=== PATIENT | male | born 1960 | race Caucasian/White ===

== ENCOUNTER 2016-04-19 18:29 | Emergency (ER) | payer MEDICARE, OTHER ==
[2016-04-19] MEDS ORDERED: Adacel (T-DAP) 0.5 ML VIAL ONE (18:37)
[2016-04-19] MEDS ORDERED: Bacitracin Zinc 1 Packet ONE (19:52)
--- NOTE | 2016-04-19 20:41 | ERRECORD ---
[facility] EMERGENCY RECORD HPI LACERATION (20:37 [facility]) CHIEF COMPLAINT: Patient presents for evaluation of laceration to thigh, on the right, 4.1-8.0cm in length, through dermis. HISTORIAN: History provided by patient, 55M presents with a laceration to right anterior thigh. 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 Denies pain or other complaints, denies other injury. Denies distal numbness/tingling. MECHANISM OF INJURY: Known mechanism, Mechanism of injury: Cut or punctured by, knife. LOCATION: Symptoms are localized. QUALITY: Laceration quality straight, Pain is dull in nature. TIME COURSE: Sudden onset of symptoms, Symptoms are improving. ASSOCIATED WITH: No associated symptoms. EXACERBATED BY: Patient's condition exacerbated by nothing. RELIEVED BY: Patient's condition relieved by nothing. TETANUS: Tetanus status not up to date, tetanus immunization ordered. ROS (20:41 [facility]) CONSTITUTIONAL: Negative constitutional review of systems, Historian denies chills, denies fever. EYES: Negative eye review of systems, Historian denies eye pain, denies eye discharge, denies vision changes. ENT: Negative ears, nose, throat review of systems, Historian denies rhinorrhea, denies sore throat. CARDIOVASCULAR: Negative cardiovascular review of systems, Historian denies chest pain, denies palpitations. RESPIRATORY: Negative respiratory review of systems, Historian denies cough, denies shortness of breath. GI: Negative gastrointestinal review of systems, Historian denies abdominal pain, denies constipation, denies diarrhea, denies nausea, denies vomiting. GENITOURINARY MALE: Negative genitourinary review of systems, Historian denies dysuria, denies hematuria. MUSCULOSKELETAL: Negative musculoskeletal review of systems, Historian denies back pain, denies fall, denies injury, denies neck pain. SKIN: laceration to right anterior thigh, otherwise no new abnormalities. Has non-acute issue with right foot, being followed by wound care. NEUROLOGIC: Negative neurologic review of systems, Historian denies headache. HEMO/LYMPHATIC: Normal hematologic/lymphatic system review, Historian denies abnormal blood clotting. PAST MEDICAL HISTORY (18:35 [facility]) MEDICAL HISTORY: Notes: back surgery, Flu vaccine up to date, Tetanus not up to date, Pneumococcal vaccine not up to date, Past medical history includes cardiac &a-1R&a+25V*p+0X*g1328M*c202B*c15G*c2P*p-0X&a-25V&a+1R Name: Sharif Sneed JR : 1960 M55 MedRec: [id number] AcctNum: [id number] Prepared: Sat Apr 19, 2016 20:48 by Interface Page 1 of 4 pMD [facility] EMERGENCY RECORD history, arrhythmia, atrial fibrillation, Past medical history includes history of diabetes, history of hypertension. MALE SURGICAL HISTORY: Left below the knee amputation,. PSYCHIATRIC HISTORY: No previous psychiatric history. SOCIAL HISTORY: Patient denies alcohol use, Patient denies drug use, Patient currently uses tobacco, chews tobacco. KNOWN ALLERGIES ALLERGIES: (Unconfirmed) FOOD ALLERGIES: (Unconfirmed) GENERIC: ADHESI - Adhesive Tape (Unconfirmed): - [id number] INGREDIENT: LACTAM A - CARBAPENEMS & AZTREONAM (Unconfirmed): - [id number] Ketorolac Tromethamine (Unconfirmed) LATEX ALLERGY? (Unconfirmed) Penicillin V (Unconfirmed) Penicillins Toradol traMADol CURRENT MEDICATIONS (18:52 [facility]) Unable to obtain VITAL SIGNS VITAL SIGNS: BP: 178/93, Resp: 18, Temp: 98.1 (Oral), Pain: 4, Time: 04/19/2016 18:30. (18:30 [facility]) Pulse: 78, O2 sat: 95 on Room Air, Time: 04/19/2016 18:33. (18:33 [facility]) BP: 122/89, Pulse: 77, Resp: 18, O2 sat: 94 on Room Air, Time: 04/19/2016 18:50. (18:50 [facility]) BP: 132/98, Pulse: 70, Resp: 18, Pain: 4, O2 sat: 93 on Room Air, Time: 04/19/2016 19:37. (19:37 [facility]) PHYSICAL EXAM (20:41 [facility]) CONSTITUTIONAL: Vital signs reviewed, Patient afebrile, Pulse normal, Blood pressure normal, Respiratory rate normal, Patient appears non toxic, Patient appears pain free, Patient alert and oriented to person, place and time. HEAD: Head exam normal, Head exam included findings of head atraumatic, normocephalic. EYES: Eye exam normal, Eye exam included findings of eyelids normal to inspection, Pupils equally round and reactive to light, Extraocular muscles intact, no nystagmus. ENT: ENT exam normal, Ear exam normal, external ear normal, tympanic membranes normal, no bleeding, Pharynx exam normal, Uvula exam normal, Tonsil exam normal, Mouth exam normal, mucous membranes moist, teeth normal. NECK: Neck exam normal, Neck exam included findings of normal range of motion, Trachea midline, no meningeal signs, no cervical &a-1R&a+25V*p+0X*o8300D*c202B*c15G*c2P*p-0X&a-25V&a+1R Name: Sharif Sneed Rocco DILLON : 1960 M55 MedRec: [id number] AcctNum: [id number] Prepared: Flaco Apr 19, 2016 20:48 by Interface Page 2 of 4 pMD [facility] EMERGENCY RECORD adenopathy, no tenderness. RESPIRATORY CHEST: Respiratory and chest exam normal, Respiratory exam included findings of no respiratory distress, Breath sounds clear. CARDIOVASCULAR: Cardiovascular assessment normal, Cardiovascular exam included findings of heart rate regular rate and rhythm, Heart sounds normal. ABDOMEN MALE: Abdominal exam included findings of abdomen nontender, Bowel sounds normal, no distension, no mass, no pulsatile masses, no peritoneal signs, no rigidity, no guarding, no rebound, Rovsing's sign absent. BACK: Back exam normal, Back exam included findings of normal inspection, range of motion normal, no tenderness. UPPER EXTREMITY: Upper extremity exam normal, Upper extremity exam included findings of inspection normal, Range of motion normal, Motor strength normal, Sensation intact, Radial pulse normal. LOWER EXTREMITY: S/P left AKA. Right leg has non-acute issue with non healing ulcer on right foot, following with wound care. Right thigh has 5-6cm laceration just superior and medial to knee. NEURO: Neuro exam normal, Neuro exam findings include patient oriented to person, place and time, Speech normal, Gait normal. SKIN: Skin exam normal, Skin exam included findings of skin warm, dry, and normal in color, no rash. PSYCHIATRIC: Psychiatric exam normal, Normal affect. MEDICATION ADMINISTRATION SUMMARY Drug Name: *Adacel(Tdap Adolesn/Adult)(PF), Dose Ordered: 0.5 mL, Route: Intramuscular, Status: Given, Time: 18:42 04/19/2016, *Additional information available in notes, Detailed record available in Medication Service section. DOCTOR NOTES (20:44 [facility]) RE-EVALUATION: Routine re-evaluation, after administration of, laceration repair, The patient's condition has improved. TEXT: Patient presented with accidental laceration to right thigh. No signs of neurovascular injury or infection. Patient tolerated repair with james well, appropriate for outpatient followup. PATIENT STATUS: Patient has improved since arrival to emergency department. PATIENT PLAN: The patient will be discharged, The patient will follow up with primary care physician. PROBLEM LIST No recorded problems DIAGNOSIS (19:50 [facility]) FINAL: PRIMARY: laceration thigh. &a-1R&a+25V*p+0X*r0152V*c202B*c15G*c2P*p-0X&a-25V&a+1R Name: Sharif Sneed JR : 1960 [facility] MedRec: [id number] AcctNum: [id number] Prepared: Sat Apr 19, 2016 20:48 by Interface Page 3 of 4 pMD [facility] EMERGENCY RECORD PRESCRIPTION No recorded prescriptions DISPOSITION PATIENT: Disposition Type: Discharge, Disposition: *Discharge Home. (19:50 [facility]) Patient left the department. (20:03 [place]) Kearns: [facility]=MD Chaparrita, Franck KMOR=MARIELA Kwok, Abigail KSPL=MARIELA Kumari, Aby &a-1R&a+25V*p+0X*p3404M*c202B*c15G*c2P*p-0X&a-25V&a+1R Name: Sharif Sneed JR : 1960 [facility] MedRec: [id number] AcctNum: [id number] Prepared: Sat Apr 19, 2016 20:48 by Interface Page 4 of 4 pMD MTDD
--- NOTE | 2016-04-19 20:46 | PICIS ---
[facility] EMERGENCY RECORD TRIAGE (18:31 [facility]) TRIAGE NOTES: Right leg laceration. (18:31 [facility]) PATIENT: NAME: Sharif Sneed JR, AGE: 55, GENDER: male, : Sat 1960, TIME OF GREET: Sat Apr 19, 2016 18:30, PREFERRED LANGUAGE: Occitan, ETHNICITY: Not or , ECODE BILLING MAP: [facility], SSN: [id number], Zip Code: [address], KG WEIGHT: [phone], PHONE: , , , PERSON ID: [id number], PAYMENT: X Medicare, PCP: [facility]. (18:31 [facility]) COMPLAINT: Leg Laceration. (18:31 [facility]) ADMISSION: URGENCY: 3 Urgent, ADMISSION SOURCE: Home, TRANSPORT: CAR, BED: ER -03. (18:31 [facility]) ASSESSMENT: Assessment: A&OX4. RR EVEN AND UNLABORED., Symptoms began 1 hour ago. (18:35 [facility]) PAIN: No complaint of pain. (18:35 [facility]) SIRS SCORING: Heart Rate 55-109 (0), Temp range 96.8-101.1 (0), respiratory rate 12-24 (0), Mental Status altered: no (0), Infection or Suspected Infection: No. (18:35 [facility]) TRIAGE SCREENING: Patient denies suicidal ideation, Patient denies presence of domestic violence. (18:35 [facility]) PROVIDERS: TRIAGE NURSE: Abigail Kwok RN. (18:31 [facility]) VITAL SIGNS: BP 178/93, Resp 18, Temp 98.1, (Oral), Pain 4, Time 04/19/2016 18:30. (18:30 KM[facility]) Pulse 78, O2 Sat 95, on Room Air, Time 04/19/2016 18:33. (18:33 [facility]) PREVIOUS VISIT ALLERGIES: Ketorolac Tromethamine, Penicillins, Tramadol. (18:31 [facility]) Ketorolac Tromethamine, Penicillins, Tramadol. (18:35 [facility]) KNOWN ALLERGIES ALLERGIES: (Unconfirmed) FOOD ALLERGIES: (Unconfirmed) GENERIC: ADHESI - Adhesive Tape (Unconfirmed): - [id number] INGREDIENT: LACTAM A - CARBAPENEMS & AZTREONAM (Unconfirmed): - [id number] Ketorolac Tromethamine (Unconfirmed) LATEX ALLERGY? (Unconfirmed) Penicillin V (Unconfirmed) Penicillins Toradol traMADol CURRENT MEDICATIONS (18:52 [facility]) Unable to obtain VITAL SIGNS VITAL SIGNS: BP: 178/93, Resp: 18, Temp: 98.1 (Oral), Pain: 4, Time: 04/19/2016 18:30. (18:30 [facility]) Pulse: 78, O2 sat: 95 on Room Air, Time: 04/19/2016 18:33. (18:33 KM[facility]) BP: 122/89, Pulse: 77, Resp: 18, O2 sat: 94 on Room Air, Time: 04/19/2016 18:50. (18:50 [facility]) &a-1R&a+25V*p+0X*m1500V*c202B*c15G*c2P*p-0X&a-25V&a+1R Name: Sharif Sneed JR : 1960 M55 MedRec: [id number] AcctNum: [id number] Prepared: Sat Apr 19, 2016 20:55 by Interface Page 1 of 6 pMD [facility] EMERGENCY RECORD BP: 132/98, Pulse: 70, Resp: 18, Pain: 4, O2 sat: 93 on Room Air, Time: 04/19/2016 19:37. (19:37 [facility]) NURSING ASSESSMENT: SKIN (18:48 [facility]) CONSTITUTIONAL: Patient arrives, via hospital wheelchair, Unsteady gait, Assistance to cart, History obtained from patient, Patient appears comfortable, Patient cooperative, Patient alert, Oriented to person, place and time, Skin warm, Skin dry, Skin normal in color, Mucous membranes pink, Mucous membranes moist, Patient is well-groomed, Patient complains of Leg laceration, Right upper leg laceration after dropping cutting knife. Bleeding controlled. PAIN: Patient rates pain as 0 out of 10. SKIN: Skin assessment findings include skin warm, Skin dry, Skin normal in color, Inspection findings include laceration, to right upper medial leg, length (cm) 7, bleeding controlled. NOTES: Patient tolerated procedure well. NURSING PROCEDURE: NURSE NOTES (19:39 [facility]) NURSES NOTES: Notes: Patient resting back in bed, playing on phone, RR even and unlabored. bleeding controlled. NURSING PROCEDURE: WOUND CARE (18:45 [facility]) PATIENT IDENTIFIER: Patient actively involved in identification process, Patient's identity verified by patient stating name, Patient's identity verified by patient stating date. TIMEOUT: Prior to procedure, correct patient verified by, patient stating name, patient stating date, Correct procedure verified, Correct site verified, Witnessed by MARIELA Hayes. WOUND CARE: Wound care indicated for preparing wound for repair, Wound care indicated to promote healing, Wound site: Right upper leg, Cause of wound: knief, Wound cleansed with Betadine, by Abigail SIERRA, Tetanus status unknown. ORDER DETAILS Order Name: chart element #1, Status: Active, Time: 18:45 04/19/2016, User: System, - Ordered for: MD Cheatham Jason, - Entered by: MARIELA Kwok, Abigail - Flaco Apr 19, 2016 18:45, - Quantity: 1, Order Name: chart element #4, Status: Active, Time: 18:45 04/19/2016, User: System, - Ordered for: MD Cheatham Jason, - Entered by: MARIELA Kwok, Abigail - Flaco Apr 19, 2016 18:45, - Quantity: 1. MEDICATION ADMINISTRATION SUMMARY &a-1R&a+25V*p+0X*u4621X*c202B*c15G*c2P*p-0X&a-25V&a+1R Name: Sharif Sneed JR : 1960 M55 MedRec: [id number] AcctNum: [id number] Prepared: Sat Apr 19, 2016 20:55 by Interface Page 2 of 6 D [facility] EMERGENCY RECORD Drug Name: *Adacel(Tdap Adolesn/Adult)(PF), Dose Ordered: 0.5 mL, Route: Intramuscular, Status: Given, Time: 18:42 04/19/2016, *Additional information available in notes, Detailed record available in Medication Service section. MEDICATION SERVICE (18:42 [facility]) Adacel(Tdap Adolesn/Adult)(PF): Order: Adacel(Tdap Adolesn/Adult)(PF) (diphth,pertuss(acell),tet vac/preservative free) - Dose: 0.5 mL : Intramuscular Schedule: Now Notes: Read back and verified Ordered by: Franck Cheatham MD Entered by: Abigail Kwok RN Sat Apr 19, 2016 18:42 Documented as given by: Abigail Kwok RN Sat Apr 19, 2016 18:42 Patient, Medication, Dose, Route and Time verified prior to administration. IM immunization, Amount given: .5ML, Medication administered to left deltoid, stock chaser: ADACEL, lot number: [id number], expiration: , Patient in position of comfort, Side rails up, Cart in lowest position, Co-signed by: Franck Cheatham MD Sat Apr 19, 2016 18:46. HPI LACERATION (20:37 [facility]) CHIEF COMPLAINT: Patient presents for evaluation of laceration to thigh, on the right, 4.1-8.0cm in length, through dermis. HISTORIAN: History provided by patient, 55M presents with a laceration to right anterior thigh. 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 Denies pain or other complaints, denies other injury. Denies distal numbness/tingling. MECHANISM OF INJURY: Known mechanism, Mechanism of injury: Cut or punctured by, knife. LOCATION: Symptoms are localized. QUALITY: Laceration quality straight, Pain is dull in nature. TIME COURSE: Sudden onset of symptoms, Symptoms are improving. ASSOCIATED WITH: No associated symptoms. EXACERBATED BY: Patient's condition exacerbated by nothing. RELIEVED BY: Patient's condition relieved by nothing. TETANUS: Tetanus status not up to date, tetanus immunization ordered. ROS (20:41 [facility]) CONSTITUTIONAL: Negative constitutional review of systems, Historian denies chills, denies fever. EYES: Negative eye review of systems, Historian denies eye pain, denies eye discharge, denies vision changes. ENT: Negative ears, nose, throat review of systems, Historian denies rhinorrhea, denies sore throat. CARDIOVASCULAR: Negative cardiovascular review of systems, Historian denies chest pain, denies palpitations. &a-1R&a+25V*p+0X*p3141Y*c202B*c15G*c2P*p-0X&a-25V&a+1R Name: Sharif Sneed JR : 1960 M55 MedRec: [id number] AcctNum: [id number] Prepared: lFaco Apr 19, 2016 20:55 by Interface Page 3 of 6 pMD [facility] EMERGENCY RECORD RESPIRATORY: Negative respiratory review of systems, Historian denies cough, denies shortness of breath. GI: Negative gastrointestinal review of systems, Historian denies abdominal pain, denies constipation, denies diarrhea, denies nausea, denies vomiting. GENITOURINARY MALE: Negative genitourinary review of systems, Historian denies dysuria, denies hematuria. MUSCULOSKELETAL: Negative musculoskeletal review of systems, Historian denies back pain, denies fall, denies injury, denies neck pain. SKIN: laceration to right anterior thigh, otherwise no new abnormalities. Has non-acute issue with right foot, being followed by wound care. NEUROLOGIC: Negative neurologic review of systems, Historian denies headache. HEMO/LYMPHATIC: Normal hematologic/lymphatic system review, Historian denies abnormal blood clotting. PAST MEDICAL HISTORY (18:35 [facility]) MEDICAL HISTORY: Notes: back surgery, Flu vaccine up to date, Tetanus not up to date, Pneumococcal vaccine not up to date, Past medical history includes cardiac history, arrhythmia, atrial fibrillation, Past medical history includes history of diabetes, history of hypertension. MALE SURGICAL HISTORY: Left below the knee amputation,. PSYCHIATRIC HISTORY: No previous psychiatric history. SOCIAL HISTORY: Patient denies alcohol use, Patient denies drug use, Patient currently uses tobacco, chews tobacco. PHYSICAL EXAM (20:41 [facility]) CONSTITUTIONAL: Vital signs reviewed, Patient afebrile, Pulse normal, Blood pressure normal, Respiratory rate normal, Patient appears non toxic, Patient appears pain free, Patient alert and oriented to person, place and time. HEAD: Head exam normal, Head exam included findings of head atraumatic, normocephalic. EYES: Eye exam normal, Eye exam included findings of eyelids normal to inspection, Pupils equally round and reactive to light, Extraocular muscles intact, no nystagmus. ENT: ENT exam normal, Ear exam normal, external ear normal, tympanic membranes normal, no bleeding, Pharynx exam normal, Uvula exam normal, Tonsil exam normal, Mouth exam normal, mucous membranes moist, teeth normal. NECK: Neck exam normal, Neck exam included findings of normal range of motion, Trachea midline, no meningeal signs, no cervical adenopathy, no tenderness. RESPIRATORY CHEST: Respiratory and chest exam normal, Respiratory exam included findings of no respiratory distress, Breath sounds &a-1R&a+25V*p+0X*p2009G*c202B*c15G*c2P*p-0X&a-25V&a+1R Name: Sharif Sneed JR : 1960 M55 MedRec: [id number] AcctNum: [id number] Prepared: [facility] Apr 19, 2016 20:55 by Interface Page 4 of 6 pMD [facility] EMERGENCY RECORD clear. CARDIOVASCULAR: Cardiovascular assessment normal, Cardiovascular exam included findings of heart rate regular rate and rhythm, Heart sounds normal. ABDOMEN MALE: Abdominal exam included findings of abdomen nontender, Bowel sounds normal, no distension, no mass, no pulsatile masses, no peritoneal signs, no rigidity, no guarding, no rebound, Rovsing's sign absent. BACK: Back exam normal, Back exam included findings of normal inspection, range of motion normal, no tenderness. UPPER EXTREMITY: Upper extremity exam normal, Upper extremity exam included findings of inspection normal, Range of motion normal, Motor strength normal, Sensation intact, Radial pulse normal. LOWER EXTREMITY: S/P left AKA. Right leg has non-acute issue with non healing ulcer on right foot, following with wound care. Right thigh has 5-6cm laceration just superior and medial to knee. NEURO: Neuro exam normal, Neuro exam findings include patient oriented to person, place and time, Speech normal, Gait normal. SKIN: Skin exam normal, Skin exam included findings of skin warm, dry, and normal in color, no rash. PSYCHIATRIC: Psychiatric exam normal, Normal affect. EVENTS TRANSFER: Triage to Emergency Emergency Room -03. (Sat Apr 19, 2016 18:31 [facility]) Removed from Emergency Emergency Room -03. (20:03 [facility]) DOCTOR NOTES (20:44 [facility]) RE-EVALUATION: Routine re-evaluation, after administration of, laceration repair, The patient's condition has improved. TEXT: Patient presented with accidental laceration to right thigh. No signs of neurovascular injury or infection. Patient tolerated repair with james well, appropriate for outpatient followup. PATIENT STATUS: Patient has improved since arrival to emergency department. PATIENT PLAN: The patient will be discharged, The patient will follow up with primary care physician. LACERATION-SINGLE REPAIR (20:43 [facility]) LACERATION REPAIR: Side and/or site verified, Verbal consent obtained, No contamination, Deep structures not involved, no bony deformity, no edema, no ecchymosis, no tendon involvement, no joint involvement, Wound not near a neurovascular bundle, No pulse deficit, Capillary refill less than 2 seconds, Distal motor intact, Distal sensation intact, No signs of compartment syndrome, Wound irrigated with normal saline, Laceration repair with james, using 7 james, total length 5.5 cm, Simple repair of laceration, to the extremity, linear laceration medial and superior to right knee, total length 5.5 &a-1R&a+25V*p+0X*a8751W*c202B*c15G*c2P*p-0X&a-25V&a+1R Name: Sharif Sneed JR : 1960 M55 MedRec: [id number] AcctNum: [id number] Prepared: Sat Apr 19, 2016 20:55 by Interface Page 5 of 6 pMD [facility] EMERGENCY RECORD cm. PROBLEM LIST No recorded problems DIAGNOSIS (19:50 [facility]) FINAL: PRIMARY: laceration thigh. DISPOSITION PATIENT: Disposition Type: Discharge, Disposition: *Discharge Home. (19:50 [facility]) Patient left the department. (20:03 [facility]) INSTRUCTION (19:51 [facility]) DISCHARGE: LACERATION, EXTREM (SUTURE, STAPLE OR TAPE). FOLLOWUP: Matt, Clinic, Clinic, [address] [facility], [facility] [address], . SPECIAL: Follow up with your primary doctor in the next 10-14 days for staple removal. If you see redness or discharge, return to the ED. PRESCRIPTION No recorded prescriptions IMAGING (18:49 [facility]) TETANUS CONSENT: Image captured from scanner. ADMIN (20:45 [facility]) DIGITAL SIGNATURE: MD Cheatham Jason. Kearns: FRANTZ=MD Cheatham Jason KMOR=MARIELA Kwok, Abigail BRICE=MARIELA Kumari, Aby &a-1R&a+25V*p+0X*k0545N*c202B*c15G*c2P*p-0X&a-25V&a+1R Name: Sharif Sneed JR : 1960 M55 MedRec: [id number] AcctNum: [id number] Prepared: Flaco Apr 19, 2016 20:55 by Interface Page 6 of 6 pMD MTDD
== END 2016-04-19 19:55 | disposition home or self-care (01) ==
LOC: BURERS 18:29
DX: S71.111A Laceration without foreign body, right thigh, initial encounter (principal); I48.91 Unspecified atrial fibrillation; E11.9 Type 2 diabetes mellitus without complications; I10 Essential (primary) hypertension; F17.220 Nicotine dependence, chewing tobacco, uncomplicated; W26.0XXA Contact with knife, initial encounter
CPT/HCPCS: 12002; 90471; 90715

== ENCOUNTER 2016-11-28 18:19 | Outpatient (CLI) | payer MEDICARE, OTHER ==
[2016-11-28 18:40] LABS: Hemoglobin A1c 9.3 % (4.0-6.0)
== END 2016-11-28 18:20 | disposition home or self-care (01) ==
LOC: BURLAB 18:19
PROVIDERS: ATTEND Family Medicine
DX: E11.9 Type 2 diabetes mellitus without complications (principal)
CPT/HCPCS: 83036